=== PATIENT | female | born 1990 | race Caucasian/White ===

== ENCOUNTER 2018-10-16 00:06 | Emergency (ER) | payer MEDICAID ==
[~2018-10-16] VITALS: Wt 86.4 kg
[2018-10-16 00:13] VITALS: BP 133/85; RESP 20
--- NOTE | 2018-10-16 04:49 | ERD ---
ER Documentation Chief Complaint Chief Complaint SOB, TINGLING IN LEGS, RAPID HEART RATE X'S 2 HOURS HPI This is a 28-year-old female who presents here to emergency department for chest pain, palpitations. LMP: 08/25/2018. A0. Denies headache, head injury, loss of consciousness, dizziness, neck pain, neck stiffness, throat pain, difficulty swallowing, difficulty breathing lying flat, shoulder pain, back pain, abdominal pain, nausea, vomiting, constipation, diarrhea, urinary symptoms, or possibility being , loss of bowel and bladder control, trauma, injury, falls, difficulty walking due to pain, numbness or tingling sensation, calf pain, recent travel, recent major s urgery in the last 3 weeks, calf pain, recent long travel, recent exposure to any illness, recent antibiotic use in the last 3 months, fever, chills, seizures. Past medical history: Asthma. Surgical history: x2. Social: Denies smoking, use of alcoholic beverages, use of illegal drugs. ROS All systems reviewed and are negative except as per history of present illness. Medications Home Meds Active Scripts Hydroxyzine Hcl* (Hydroxyzine Hcl*) 50 Mg Tablet, 50 MG PO Q6H PRN for ANXIETY, #30 TAB Prov:GUERA WEAVER 10/16/18 Allergies Allergies: Coded Allergies: No Known Drug Allergies (Verified Allergy, Unknown, 04/26/16) PMhx/Soc History of Surgery: Yes () Hx Respiratory Disorders: Yes (ASTHMA) Hx Psychiatric Problems: No Hx Miscellaneous Medical Probl: No Hx Alcohol Use: No Hx Substance Use: No Hx Tobacco Use: No Physical Exam Vitals Physical Exam Const: No acute distress Head: Atraumatic Eyes: Normal Conjunctiva ENT: Normal External Ears, Nose and Mouth. No signs of airway obstruction. Speaks full and clear sentences. No tripoding. Neck: Full range of motion. No meningismus. Resp: Clear to auscultation bilaterally. Chest: Examined with female parking lot supervisor. No vesicular lesions. Cardio: Regular rate and rhythm, no murmurs Abd: Soft, non tender, non distended. Normal bowel sounds Skin: No petechiae or rashes. Skin is not clammy. Color appears normal for ethnicity. No skin tenting. No signs of severe dehydration. Back: No midline or flank tenderness Ext: No cyanosis, or edema Neur: Awake and alert. No neurological deficits. Psych: Normal Mood and Affect. Denies auditory/visual hallucinations/delusions. Not suicidal. Not homicidal. Has the capacity to de cide for herself. Has good support system at home. Results 24 hrs Laboratory Tests Test 10/16/18 05:29 POC Beta HCG, Qualitative NEGATIVE Current Medications Medications Dose Sig/Lynette Start Time Status Last (Trade) Ordered Route PRN Stop Time Admin Dose Reason Admin Aspirin 325 mg ONCE ONCE 10/16/18 DC 10/16/18 (Aspirin) PO 05:00 05:33 10/16/18 05:01 Lorazepam 1 mg ONCE ONCE 10/16/18 DC 10/16/18 (Ativan) PO 05:00 05:33 10/16/18 05:01 Procedures/MDM Diagnostic tests: POC urine : Negative. EKG: Normal sinus rhythm with sinus arrhythmia. No STEMI. Read by supervising physician. Treatment: Ativan p.o. Aspirin p.o. Re-evaluation: Denies headache, neck pain, neck stiffness, chest pain, back pain, abdominal pain. Denies auditory/visual hallucinations/delusions. Not suicidal. Not homicidal. Has the capacity to decide for herself. Has good support system at home. Differential diagnosis I have low suspicion for acute myocardial infarction, acute coronary syndrome, pneumonia, pulmonary embolism, hypothyroidism, thyrotoxicosis, suicidal ideation, severe anxiety, severe dehydration, 5150. Final diagnosis: Anxiety. Prescription: Hydroxyzine. Follow-up with PCP in the next 24-48 hours. Come back here in the emergency department for any new symptoms or any worsening symptoms. All questions and concerns were answered. Patient and family members verbalized understanding and agreed with plan of care. Hemodynamically stable on discharge. Departure Diagnosis: Primary Impression: Anxiety Additional Impression: Anxiety attack Condition: Stable Additional Instructions: Follow-up with PCP in the next 24-48 hours. Come back here in the emergency department for any new symptoms or any worsening symptoms. GUERA WEAVER Oct 16, 2018 04:48
[2018-10-16] MEDS ORDERED: ASPIRIN 325 MG TAB PO ONE (05:00)
[2018-10-16] MEDS ORDERED: LORAZEPAM 1 MG TAB PO ONE (05:00)
[2018-10-16] MEDS ORDERED: HYDR50TA15 PO (05:47)
[2018-10-16 06:02] VITALS: PULSE 100
== END 2018-10-16 06:03 | disposition home or self-care (01) ==
LOC: FTE 00:06
DX: F41.9 Anxiety disorder, unspecified (principal); J45.901 Unspecified asthma with (acute) exacerbation
CPT/HCPCS: 81025; 93005; Z7502; Z7610